=== PATIENT | female | born 1965 | race African-American/Black ===

== ENCOUNTER 2016-03-14 20:13 | Emergency (ER) | payer MEDICARE ==
[~2016-03-14 20:13] MED LIST: AMLO5TAB2 PO; ASPI1TAB69 PO; LOSA100T PO; METO50TA PO; SIMV40TA PO
== END 2016-03-14 20:31 | disposition left against medical advice (07) ==
LOC: PHED 20:13
DX: L29.2 Pruritus vulvae (principal)
CPT/HCPCS: 99281

== ENCOUNTER 2016-03-30 07:17 | Emergency (ER) | payer MEDICARE ==
[~2016-03-30] VITALS: Ht 157.5 cm; Wt 96.3 kg
[2016-03-30 07:25] VITALS: BP 116/75; PULSE 59; RESP 16; TEMP 98.2; O2SAT 98
[2016-03-30] MEDS ORDERED: BACI28.3 TOPICAL (09:04)
[2016-03-30] MEDS ORDERED: IBUP-232 PO (09:05)
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
[2016-03-30] MEDS ORDERED: IBUPROFEN 600 MG TAB PO ONE (09:15)
== END 2016-03-30 09:31 | disposition home or self-care (01) ==
LOC: PHED 07:17
DX: T23.201A Burn of second degree of right hand, unspecified site, initial encounter (principal); X19.XXXA Contact with other heat and hot substances, initial encounter; Y93.9 Activity, unspecified; Y92.9 Unspecified place or not applicable; Y99.9 Unspecified external cause status; Z79.82 Long term (current) use of aspirin
CPT/HCPCS: 99283

== ENCOUNTER 2016-07-20 21:33 | Emergency (ER) | payer MEDICARE ==
[~2016-07-20] VITALS: Ht 157.5 cm; Wt 95.5 kg
[~2016-07-20 21:33] MED LIST changes: +BACI28.3 TOPICAL; +IBUP-232 PO
[2016-07-20 21:41] VITALS: BP 138/85; PULSE 67; RESP 16; TEMP 98.2; O2SAT 99
[2016-07-20] MEDS ORDERED: ASPI81CH CHEW (21:55)
--- NOTE | 2016-07-20 21:55 | PD ---
HPI Chief Complaint: Deckhand Problem/Complaint Time Seen by Provider: 21:50 Travel History International Travel<30 days: No Contact w/Intl Traveler<30days: No Traveled to known affect area: No History of Present Illness HPI This 51-year-old female is complaining of vaginal itching. She has noted some vaginal discharge. In March she took antibiotics for tooth infection. She' s had sporadic vaginal symptoms since. She has been taking Monistat which helps it but then it has come back. She does not have diabetes PFSH Past Medical History Hx Anticoagulant Therapy: Yes (asa 81mg) Blood Disorders: No Cancer: No Cardiovascular Problems: Yes (htn, stent) Chest Pain: No Cerebrovascular Accident: Yes Diabetes: Yes (JUST DIAGNOSED) Diminished Hearing: No Endocrine: No Gastrointestinal Disorders: Yes ( AUDREY HX.THIS ADMIT =VERTICLE SLEEVE) Glaucoma: No Genitourinary: No Hepatitis: No Hiatal Hernia: No Hypertension: Yes Immune Disorder: No Implanted Vascular Access Dvce: Yes ("LUMBAR AREA"- SHUNT PLACEMENT D/T PSEUDO TUMOR CEREBRI) Musculoskeletal: No Psychiatric: No Reproductive: No Respiratory: No Integumentary: No Immunizations Current: Yes Sleep Apnea: Yes (DOESNT USE CPAP) Thyroid Disease: No : 5 Para: 4 Miscarriage: 1 : 0 Tubal Ligation: Yes (2001) Past Surgical History Abdominal Surgery: Yes (01/06/13 GASTRIC SLEEVE) AICD: No Arteriovenous Shunt: Yes Body Medical Devices: LUMBAR PERITONEAL SHUNT Cardiac Surgery: Yes (CARDIAC [id number]) Section: Yes Cholecystectomy: Yes Ear Surgery: No Endocrine Surgery: No Eye Surgery: No Hysterectomy: Yes Joint Replacement: No Neurologic Surgery: Yes (LUMBAR PERITONEAL SHUNT.) Oral Surgery: No Pacemaker: No Thoracic Surgery: No Other Surgery: Yes (SHUNT IN LOW BACK FOR PSEUDOTREMORS) Social History Alcohol Use: No Tobacco Use: No (NEVER) Substance Use: No Allergies-Medications (Allergen,Severity, Reaction): Coded Allergies: Sulfa (Verified Allergy, Severe, red blotches,itchy, 07/20/16) Reported Meds & Prescriptions Reported Meds & Active Scripts Active Ibuprofen 600 Mg Tab 600 Mg PO Q8HR PRN 5 Days Reported Aspirin 81 Mg Chew 81 Mg CHEW DAILY Losartan (Losartan Potassium) 100 Mg Tab 100 Mg PO HS Simvastatin 40 Mg Tab 40 Mg PO HS Metoprolol Tartrate 50 Mg Tab 50 Mg PO BID Amlodipine (Amlodipine Besylate) 5 Mg Tab 5 Mg PO HS Review of Systems General / Constitutional: No: Fever, Chills Eyes: No: Diploplia, Blurred Vision HENT: No: Headaches Cardiovascular: No: Chest Pain or Discomfort, Palpitations Respiratory: No: Cough, Shortness of Breath, Wheezing Gastrointestinal: No: Diarrhea Genitourinary: Positive: Discharge, No: Frequency Musculoskeletal: No: Myalgias Physical Exam Narrative GENERAL: Well-developed female SKIN: Focused skin assessment warm/dry. HEAD: Atraumatic. Normocephalic. EYES: Pupils equal and round. No scleral icterus. No injection or drainage. ENT: No nasal bleeding or discharge. Mucous membranes pink and moist. NECK: Trachea midline. No JVD. GASTROINTESTINAL: Abdomen soft, non-tender, nondistended. Hepatic and splenic margins not palpable. Pelvic: There is some whitish discharge. There is no pain with movement of the cervix MUSCULOSKELETAL: No obvious deformities. No clubbing. No cyanosis. No edema. NEUROLOGICAL: Awake and alert. No obvious cranial nerve deficits. Motor grossly within normal limits. Normal speech. PSYCHIATRIC: Appropriate mood and affect; insight and judgment normal. Data Data Last Documented VS Vital Signs Date Time Temp Pulse Resp B/P Pulse Ox O2 Delivery O2 Flow Rate FiO2 07/20/16 22:00 68 18 07/20/16 21:41 98.2 138/85 99 Orders Gc And Chlamydia Pcr (07/20/16 22:02) Wet Prep Profile (07/20/16 22:02) Labs Laboratory Tests Test 07/20/16 22:00 Clue Cells (Wet Prep) NONE SEEN Vaginal Trichomonas (Wet Prep) NONE SEEN Vaginal Yeast (Wet Prep) NONE SEEN MDM Medical Decision Making Medical Screen Exam Complete: Yes Emergency Medical Condition: Yes Medical Record Reviewed: Yes Differential Diagnosis Differential includes yeast vaginitis, Trichomonas vaginitis, bacterial vaginosis Narrative Course Wet prep is negative. Patient is having symptoms and will be treated with Flagyl as well as Diflucan Diagnosis Primary Impression: Vaginitis Qualified Code: N76.1 - Subacute vaginitis Scripts Metronidazole (Flagyl)500 Mg Nxi311 Mg PO TID 7 Days Ref 0 Prov:Cm Skelton MD 07/20/16 Disposition: 01 DISCHARGE HOME Condition: Stable Cm Skelton MD Jul 20, 2016 21:55
[2016-07-20] MEDS ORDERED: METR-1 PO (22:28)
[2016-07-20] MEDS ORDERED: FLUCONAZOLE 100 MG TAB PO ONE (22:30)
[2016-07-20 22:50] VITALS: BP 128/80; PULSE 68; RESP 16; O2SAT 99
[2016-07-21 04:10] LABS: CHLAMYDIA PCR NOT DETECTED (NOT DETECT); NEISSERIA PCR NOT DETECTED (NOT DETECT)
== END 2016-07-20 22:52 | disposition home or self-care (01) ==
LOC: PHED 21:33
DX: N76.1 Subacute and chronic vaginitis (principal)
CPT/HCPCS: 87210; 87491; 87591; 99284

== ENCOUNTER 2016-10-11 08:42 | Emergency (ER) | payer MEDICARE ==
[~2016-10-11] VITALS: Ht 157.5 cm; Wt 99.0 kg
[~2016-10-11 08:42] MED LIST changes: -ASPI1TAB69 PO; +ASPI81CH CHEW; -BACI28.3 TOPICAL; +METR-1 PO
[2016-10-11 08:50] VITALS: BP 137/77; PULSE 63; RESP 16; TEMP 98; O2SAT 98
[2016-10-11] MEDS ORDERED: IBUP800T23 PO (09:08)
[2016-10-11] MEDS ORDERED: CYCL1TAB29 PO (09:08)
--- NOTE | 2016-10-11 09:09 | PD ---
HPI . Right chest wall pain Chief Complaint: Musculoskeletal Complaint Time Seen by Provider: 09:02 Travel History International Travel<30 days: No Contact w/Intl Traveler<30days: No Traveled to known affect area: No History of Present Illness HPI This patient presents with the acute onset of right chest wall pain. She states that she was reaching for something last night when the pain started. The pain has persisted. It is rated 7/10 and is exacerbated by certain movements. She has not taken anything for it prior to presentation. PFSH Past Medical History Hx Anticoagulant Therapy: Yes (asa 81mg) Blood Disorders: No Cancer: No Cardiovascular Problems: Yes (htn, stent) Chest Pain: No Cerebrovascular Accident: Yes Diabetes: Yes Patient Takes Glucophage: No Diminished Hearing: No Endocrine: No Gastrointestinal Disorders: Yes ( LexxARMANDOJASPER HX.THIS ADMIT =VERTICLE SLEEVE) Glaucoma: No Genitourinary: No Hepatitis: No Hiatal Hernia: No Hypertension: Yes Immune Disorder: No Implanted Vascular Access Dvce: Yes ("LUMBAR AREA"- SHUNT PLACEMENT D/T PSEUDO TUMOR CEREBRI) Medical other: No Musculoskeletal: No Psychiatric: No Reproductive: No Respiratory: No Integumentary: No Immunizations Current: Yes Sleep Apnea: Yes (DOESNT USE CPAP) Thyroid Disease: No ?: Not Menopausal: Yes : 5 Para: 4 Miscarriage: 1 : 0 Tubal Ligation: Yes (2001) Past Surgical History Abdominal Surgery: Yes (01/06/13 GASTRIC SLEEVE) AICD: No Arteriovenous Shunt: Yes Body Medical Devices: LUMBAR PERITONEAL SHUNT Cardiac Surgery: Yes (CARDIAC [id number]) Section: Yes Cholecystectomy: Yes Ear Surgery: No Endocrine Surgery: No Eye Surgery: No Hysterectomy: Yes Joint Replacement: No Neurologic Surgery: Yes (LUMBAR PERITONEAL SHUNT.) Oral Surgery: No Pacemaker: No Thoracic Surgery: No Other Surgery: Yes (SHUNT IN LOW BACK FOR PSEUDOTREMORS) Social History Alcohol Use: No Tobacco Use: No (NEVER) Substance Use: No Allergies-Medications (Allergen,Severity, Reaction): Coded Allergies: Sulfa (Sulfonamide Antibiotics) (Unverified Allergy, Severe, red blotches, itchy, 10/11/16) Reported Meds & Prescriptions Reported Meds & Active Scripts Active Flagyl (Metronidazole) 500 Mg Tab 500 Mg PO TID 7 Days Ibuprofen 600 Mg Tab 600 Mg PO Q8HR PRN 5 Days Reported Aspirin 81 Mg Chew 81 Mg CHEW DAILY Losartan (Losartan Potassium) 100 Mg Tab 100 Mg PO HS Simvastatin 40 Mg Tab 40 Mg PO HS Metoprolol Tartrate 50 Mg Tab 50 Mg PO BID Amlodipine (Amlodipine Besylate) 5 Mg Tab 5 Mg PO HS Review of Systems Except as stated in HPI: all other systems reviewed are Neg Cardiovascular: Positive: Chest Pain or Discomfort Physical Exam Narrative GENERAL: Awake and alert and in no acute distress. SKIN: Warm and dry. HEAD: Atraumatic. Normocephalic. EYES: Pupils equal and round. NECK: Trachea midline. Full range of motion with no pain. CARDIOVASCULAR: Regular rate and rhythm. RESPIRATORY: No accessory muscle use. MUSCULOSKELETAL: No obvious deformities. No edema. Tender over the right pectoralis muscle. Pain exacerbated by contraction of the right pectoralis muscle. NEUROLOGICAL: Awake and alert. No obvious cranial nerve deficits. Motor grossly within normal limits. Normal speech. PSYCHIATRIC: Appropriate mood and affect; insight and judgment normal. Data Data Last Documented VS Vital Signs Date Time Temp Pulse Resp B/P (MAP) Pulse Ox O2 Delivery O2 Flow Rate FiO2 10/11/16 08:50 98.0 63 16 137/77 (97) 98 MDM Medical Decision Making Medical Screen Exam Complete: Yes Emergency Medical Condition: Yes Differential Diagnosis Differential diagnosis includes but is not limited to acute muscle strain, spasm , contusion Narrative Course This patient presents with the acute onset right chest wall pain that started after reaching for something last night. Pain is exacerbated by certain movements. Exam shows tenderness of the right pectoralis muscle. Diagnosis Primary Impression: Muscle strain of anterior chest wall Med/Other Pt SpecificInfo: Prescription(s) given Scripts Cyclobenzaprine (Flexeril) 10 Mg Tab 10 MG PO TID for Muscle Spasm, #30 TAB 0 Refills Prov: Iman Pedraza MD 10/11/16 Ibuprofen (Ibuprofen) 800 Mg Tab 800 MG PO Q8H Y for Pain/Inflammation, #60 TAB 0 Refills Prov: Iman Pedraza MD 10/11/16 Disposition: 01 DISCHARGE HOME Condition: Stable Iman Pedraza MD Oct 11, 2016 09:09
== END 2016-10-11 09:32 | disposition home or self-care (01) ==
LOC: PHED 08:42
DX: S29.011A Strain of muscle and tendon of front wall of thorax, initial encounter (principal); I10 Essential (primary) hypertension; X50.1XXA Overexertion from prolonged static or awkward postures, initial encounter; Z79.82 Long term (current) use of aspirin
CPT/HCPCS: 99283

== ENCOUNTER 2017-03-22 07:49 | Emergency (ER) | payer MEDICARE ==
[~2017-03-22] VITALS: Ht 177.8 cm; Wt 100.0 kg
[~2017-03-22 07:49] MED LIST changes: -ASPI81CH CHEW; +CYCL10TA PO; -IBUP-232 PO; +IBUP1TAB7 PO; -METR-1 PO
[2017-03-22 07:51] VITALS: BP 134/81; PULSE 67; RESP 14; TEMP 97.6; O2SAT 97
--- NOTE | 2017-03-22 08:54 | RADRPT ---
EXAM DATE/TIME: 03/22/2017 08:40 [facility] COMPARISON: No previous studies available for comparison. INDICATIONS : Cough and flu like symptoms. MEDICAL HISTORY : Stroke. Hypertension. Pseudo tremors. Diabetes. SURGICAL HISTORY : Cardiac stent. ENCOUNTER: Initial ACUITY: 3 days PAIN SCORE: 5/10 LOCATION: Bilateral chest FINDINGS: A single view of the chest demonstrates the lungs to be symmetrically aerated without evidence of mas s, infiltrate or effusion. The cardiomediastinal contours are unremarkable. Osseous structures are intact. CONCLUSION: 1. No acute cardiopulmonary disease. Nirav Retana MD on March 22, 2017 at 8:53 Board Certified Radiologist. This report was verified electronically.
--- NOTE | 2017-03-22 09:22 | PD ---
HPI Chief Complaint: ENT Complaint Time Seen by Provider: 08:10 Travel History International Travel<30 days: No Contact w/Intl Traveler<30days: No Traveled to known affect area: No History of Present Illness HPI 51-year-old female presents to the emergency Department with complaint of throat pain 3 days. Denies lump in throat, difficulty swallowing, unusual drooling. Reports painful swallowing. Is also complaining that she's had a cough since mid February and took a Z-Rboin and it went away and in the past week it's been back and getting worse again. Denies chest pain, shortness of breath. Reports pain in her bilateral upper back/rib cage area with deep breath and movement. Denies wheezing. Denies nasal congestion or ear pain. Denies fever, vomiting. Rates throat pain 08/14. Describes it as a burning sensation. Worse with deep breaths and movements. No known relieving factors. Son has been sick with similar symptoms. Has tried taking sertraline for symptom management. Primary care provider is Dr. Frias. History of hypertension, cardiac stent placement, pseudotumor cerebri. Allergies to sulfa. Has no other medical complaints. No other modifying factors or associated signs and symptoms. PFSH Past Medical History Hx Anticoagulant Therapy: Yes (asa 81mg) Blood Disorders: No Cancer: No Cardiovascular Problems: Yes (htn, stent) Chest Pain: No Cerebrovascular Accident: Yes Diabetes: Yes Diminished Hearing: No Endocrine: No Gastrointestinal Disorders: Yes ( AUDREY HX.THIS ADMIT =VERTICLE SLEEVE) Glaucoma: No Genitourinary: No Hepatitis: No Hiatal Hernia: No Hypertension: Yes Immune Disorder: No Implanted Vascular Access Dvce: Yes ("LUMBAR AREA"- SHUNT PLACEMENT D/T PSEUDO TUMOR CEREBRI) Musculoskeletal: No Psychiatric: No Reproductive: No Respiratory: No Integumentary: No Immunizations Current: Yes Sleep Apnea: Yes (DOESNT USE CPAP) Thyroid Disease: No Menopausal: Yes : 5 Para: 4 Miscarriage: 1 : 0 Tubal Ligation: Yes (2001) Past Surgical History Abdominal Surgery: Yes (01/06/13 GASTRIC SLEEVE) AICD: No Arteriovenous Shunt: Yes Body Medical Devices: LUMBAR PERITONEAL SHUNT Cardiac Surgery: Yes (CARDIAC [id number]) Section: Yes Cholecystectomy: Yes Ear Surgery: No Endocrine Surgery: No Eye Surgery: No Hysterectomy: Yes Joint Replacement: No Neurologic Surgery: Yes (LUMBAR PERITONEAL SHUNT.) Oral Surgery: No Pacemaker: No Thoracic Surgery: No Other Surgery: Yes (SHUNT IN LOW BACK FOR PSEUDOTREMORS) Social History Alcohol Use: No Tobacco Use: No (NEVER) Substance Use: No Allergies-Medications (Allergen,Severity, Reaction): Coded Allergies: Sulfa (Sulfonamide Antibiotics) (Unverified Allergy, Severe, red blotches, itchy, 03/22/17) Reported Meds & Prescriptions Reported Meds & Active Scripts Active Flexeril (Cyclobenzaprine HCl) 10 Mg Tab 10 Mg PO TID Ibuprofen 800 Mg Tab 800 Mg PO Q8H PRN Reported Losartan (Losartan Potassium) 100 Mg Tab 100 Mg PO HS Simvastatin 40 Mg Tab 40 Mg PO HS Metoprolol Tartrate 50 Mg Tab 50 Mg PO BID Amlodipine (Amlodipine Besylate) 5 Mg Tab 5 Mg PO HS Review of Systems Except as stated in HPI: all other systems reviewed are Neg Physical Exam Narrative GENERAL: Well-nourished, well-developed black female patient, in no acute distress; afebrile, nontoxic-appearing SKIN: Warm and dry. No rash. HEAD: Atraumatic. Normocephalic. EYES: Pupils equal and round. No scleral icterus. No injection or drainage. ENT: Mucosa pink and moist. No erythema or exudates. No uvular edema. No uvular , palatal, or tonsillar deviation. Airway patent. EARS: Bilateral pinnae and external canals appear within normal limits. Bilateral tympanic membranes without erythema, dullness or perforation. NECK: Trachea midline. No lymphadenopathy. CARDIOVASCULAR: Regular rate and rhythm. No murmur appreciated. RESPIRATORY: No accessory muscle use. Clear to auscultation. Breath sounds equal bilaterally. No retractions or tachypnea. GASTROINTESTINAL: Abdomen soft, non-tender, nondistended. Hepatic and splenic margins not palpable. Bowel sounds are active 4 quadrants. MUSCULOSKELETAL: No obvious deformities. No clubbing. No cyanosis. No edema. NEUROLOGICAL: Awake and alert. Oriented 3. No obvious cranial nerve deficits. Motor grossly within normal limits. Normal speech. Moves all extremities. 5/5 strength to all extremities. PSYCHIATRIC: Appropriate mood and affect; insight and judgment normal. Data Data Last Documented VS Vital Signs Date Time Temp Pulse Resp B/P (MAP) Pulse Ox O2 Delivery O2 Flow Rate FiO2 03/22/17 07:51 97.6 67 14 134/81 (98) 97 Orders Orders Chest, Single Ap (03/22/17 08:28) Influenzae A/B Antigen (03/22/17 08:31) Group A Rapid Strep Screen (03/22/17 08:31) Strep Culture (Group A) (03/22/17 08:50) MDM Medical Decision Making Medical Screen Exam Complete: Yes Emergency Medical Condition: Yes Medical Record Reviewed: Yes Differential Diagnosis Strep pharyngitis, viral pharyngitis, URI, bronchitis, influenza, pneumonia Narrative Course 51-year-old female with throat pain 3 days. Also reports cough since mid February. Was treated with a Z-Robin which helped the cough subsided and then has returned within the past week. Denies chest pain or shortness of breath. Lungs are clear and equal throughout. Patient is in no acute distress and without retractions or tachypnea. Patient is afebrile and nontoxic-appearing. She denies fever, vomiting. Rapid strep, influenza, chest x-ray ordered. I offered the patient pain medication and she declined. 0930: Chest x-ray with no acute findings. 1017: Influenza and rapid strep negative. Discussed viral illness and symptom management. Instructed patient to follow up with primary care provider. Patient verbalizes understanding and agreement with treatment plan. Patient is medically cleared and stable for discharge. Discussed reasons to return to the emergency department. Patient agrees with treatment plan. The patients vital signs are stable and the patient is stable for outpatient follow-up and treatment. Patient discharged home, stable and in no acute distress. Diagnosis Primary Impression: Viral illness Referrals: Primary Care Physician Patient Instructions: Cold Symptoms (ED), General Instructions, Safe Use of Cough and Cold Medicines (ED), Viral Syndrome (ED) Additional Instructions: Throw away and change your toothbrush 24 hours after starting antibiotics Get plenty of sleep/rest Rest your voice Drink plenty of fluids to prevent dehydration Use warm saltwater gargles to soothe throat pain Use an air humidifier/turn off ceiling fans Use throat lozenges as needed for sore throat Use ibuprofen or acetaminophen as needed to relieve pain and fever Follow-up with your primary care provider within 2-4 days Return immediately to the emergency department with worsening of symptoms Med/Other Pt SpecificInfo: No Change to Meds, No Meds Exist/No RX given Disposition: 01 DISCHARGE HOME Condition: Stable Shirley Winter Mar 22, 2017 09:22
== END 2017-03-22 10:49 | disposition home or self-care (01) ==
LOC: NEPD 07:49
DX: B34.9 Viral infection, unspecified (principal); R05 Cough; I10 Essential (primary) hypertension; E11.9 Type 2 diabetes mellitus without complications; Z79.01 Long term (current) use of anticoagulants
CPT/HCPCS: 71045; 87081; 87804; 87880; 99284

== ENCOUNTER 2017-08-19 16:39 | Observation (INO) ==
[2017-08-19] MEDS ORDERED: Aspirin 325 MG Tablet PO ONE (17:05)
[2017-08-19 17:31] LABS: Baso # (Auto) 0.1 th/mm3 (0.0-0.2); Baso % (Auto) 0.5 % (0.0-2.0); Eos # (Auto) 0.1 th/mm3 (0.0-0.4); Eos % (Auto) 1.3 % (0.0-4.0); Hemoglobin 13.9 gm/dL (11.6-15.3); Lymph # (Auto) 2.2 th/mm3 (1.0-4.8); Mean Corpuscular HGB Conc 33.1 % (32.0-36.0); Mean Corpuscular Hemoglobin 28.4 pg (27.0-34.0); Mean Corpuscular Volume 85.7 fL (80.0-100.0); Mean Platelet Volume 7.6 fL (7.0-11.0); Mono # (Auto) 0.8 th/mm3 (0.0-0.9); Mono % (Auto) 6.6 % (0.0-8.0); Neut # (Auto) 8.5 th/mm3 (1.8-7.7); Neut % (Auto) 72.6 % (16.0-70.0); Platelet Count 445 th/mm3 (150-450); Red Cell Distribution Width 14.6 % (11.6-17.2); White Blood Count 11.8 th/mm3 (4.0-11.0)
--- NOTE | 2017-08-19 17:32 | XR ---
EXAM DATE: 08/19/2017 5:23 PM EDT AGE/SEX: 52 years / Female INDICATIONS: Chest pain CLINICAL DATA: This is the patient's initial encounter. Patient reports that signs and symptoms have been present for 1 day and indicates a pain score of 4/10. MEDICAL/SURGICAL HISTORY: . Stroke. Hypertension. Pseudo tremors. Diabetes. . . Cardiac sten t COMPARISON: [facility] [place], CHEST SINGLE AP, 03/22/2017. . FINDINGS: A single AP view of the chest demonstrates the lungs to be symmetrically aerated without evidence of mass, infiltrate or effusion. The cardiomediastinal contours are unremarkable. Osseous structures a re intact. CONCLUSION: No acute cardiopulmonary process. Electronically signed by: Srinivasa Ledbetter MD 08/19/2017 5:30 PM EDT
[2017-08-19 17:41] LABS: Activated Partial Thrombo Time 26.6 sec (24.3-30.1); Prothrombin Time 10.4 sec (9.8-11.6)
--- NOTE | 2017-08-19 17:57 | ED ---
HPI General Chief Complaint: Chest Pain Stated Complaint: Possible Cardiac Time Seen by Provider: 08/19/17 16:59 Source: patient and family Mode of arrival: ambulatory Limitations: no limitations History of Present Illness HPI narrative: 52-year-old female that presents to the ED for evaluation of left -sided chest pain. Per patient she has had this pain for the past 2-3 hours. Per patient he feels similar to when she had stents. Per patient she was walking and the pain started. Per patient the pain has subsided. Initially was 10 out of 10 now is more of a 6 out of 10. Per patient he does comes pressure her chest and gives her some nausea. She states that it seems to radiate to her right side of her body. Denies any urinary or bowel movement issues. Has not taken anything for this. She does have a history of high blood pressure and history of ACS herself. Denies smoking. Denies any abdominal pain. Per patient she follows with curtain cleaner. She states that she recently had a biopsy of her breast mass that was apparently stage 0. She does not know if it was cancer or not. She has not had any chemoradiation. No numbness, drooling, weakness. No other medical issues reported at this time. Complete Quality Measures for STEMI Alert Patients Related Data Home Medications Medication Instructions Recorded Confirmed amlodipine 5 mg PO DAILY 08/19/17 08/19/17 aspirin 81 mg PO DAILY 08/19/17 08/19/17 losartan 100 mg PO DAILY 08/19/17 08/19/17 metoprolol tartrate 100 mg PO BID 08/19/17 08/19/17 simvastatin 20 mg PO QPM 08/19/17 08/19/17 Allergies Allergy/AdvReac Type Severity Reaction Status Date / Time Sulfa (Sulfonamide Allergy Severe red Verified 08/20/17 02:46 Antibiotics) blotches,itchy Review of Systems ROS Unobtainable All other systems reviewed negative except as stated in HPI [facility] Medical History Medical History History of heart attack (Acute) Hypertension (Acute) Social History Social History Substance History: No History of Abuse Second Hand Smoke Exposure: No Smoking Status: Never smoker How Often Do You Have a Drink Containing Alcohol: Never Recent Travel in [facility] within the Last 8 Weeks: No Recent Out of Country Travel within the Last 8 Weeks: No Immunization History Tetanus Immunization: Unsure Exam Narrative Exam Narrative: GENERAL: Well-appearing SKIN: Focused skin assessment warm/dry. HEAD: Atraumatic. Normocephalic. EYES: Pupils equal and round 4 mms reactive to light and accommodation. No scleral icterus. No injection or drainage. ENT: No nasal bleeding or discharge. Mucous membranes pink and moist. Tongue is midline. No uvula deviation. NECK: Trachea midline. No JVD. CARDIOVASCULAR: Regular rate and rhythm. No murmur appreciated. RESPIRATORY: No accessory muscle use. Clear to auscultation. Breath sounds equal bilaterally. GASTROINTESTINAL: Abdomen soft, non-tender, nondistended. Hepatic and splenic margins not palpable. MUSCULOSKELETAL: No obvious deformities. No clubbing. No cyanosis. No edema. Full range of motion of the upper and lower extremities 2+ pulses bilaterally. NEUROLOGICAL: Awake and alert. No obvious cranial nerve deficits. Motor grossly within normal limits. Normal speech. PSYCHIATRIC: Appropriate mood and affect; insight and judgment normal. Course Initial Documented Vital Signs Pulse Rate 104 H 08/19/17 17:01 Respiratory Rate 22 08/19/17 17:01 Blood Pressure 199/92 H 08/19/17 17:01 Pulse Oximetry 98 08/19/17 17:01 Last Documented Vital Signs Temperature 98.1 F 08/20/17 11:30 Pulse Rate 83 08/20/17 11:30 Respiratory Rate 16 08/20/17 11:30 Blood Pressure 126/72 08/20/17 11:30 Pulse Oximetry 98 08/20/17 11:30 Sign Out Sign Out Data: Patient Sign Out occurred on 08/19/17 at 21:34. Patient's care was discussed, and care was transferred from Dara Moya DO to Tello Goins. Sign Out Comment: Patient is pending CTA chest to rule out PE. She will need observation in chest pain unit if negative/ admission if positive. Last updated by Dara Moya DO at 08/19/17 19:14 Medical Decision Making FINN Attestation FINN supervised visit: Yes Attestation: I was present with the physician's sourcing assistant during the management of this patient. I discussed the case with the advanced practitioner and agree with the findings and plan as documented in their note except as noted below. 52yF presenting with chest pain. The patient has a significant cardiac history and is scheduled for a stress test in 2 days; she presented today complaining of left-sided chest pain which is "pressure-like", constant, non-radiating, not made better or worse by anything, gradual onset, and moderate to severe intensity. Patient has previous cardiac stents. Family history non-contributory. Appears uncomfortable NCAT, PERRL RRR CTAB Abd soft, non-tender No lower extremity edema GCS 15, no focal neuro deficits Plan: 52yF presenting with chest pain EKG and monitor Labs, including trop CXR ASA CTA chest to r/o PE (patient has history of breast CA, ? stage 0) Reassess Differential diagnosis includes, but is not limited to: ACS, PE, pneumonia, pleural effusion MDM Narrative Medical decision making narrative: 52-year-old female that presents to the ED for evaluation of chest pain. Patient was properly examined and was found to have signs and symptoms consistent appears to be possible ACS. Labs and imaging order. Labs and imaging showed no sign of acute disease. This time recommendations for admission to chest pain center for further workup of the ACS. She was found to be somewhat hypertensive and was started on labetalol IV with good results. At this time patient was admitted to chest pain center for further evaluation of her chest pain. Family and patient agree with this. Case discussed with my attending who evaluated the patient herself and agrees with plan. Differential Diagnosis Differential Diagnosis: ACS versus typical chest pain versus chest pain versus PE Medical Records Medical records reviewed: Yes I reviewed the patient's medical records. Lab Data Lab results reviewed: Yes I reviewed the patient's lab results. Lab results narrative: Troponin and CK-MB negative. Result diagrams: 08/19/17 17:10 08/19/17 17:10 Lab Results 08/19/17 08/19/17 08/19/17 Range/Units 17:10 17:10 17:10 WBC 11.8 H (4.0-11.0) th/mm3 RBC 4.90 (4.00-5.30) mil/mm3 Hgb 13.9 (11.6-15.3) gm/dL Hct 42.0 (35.0-46.0) % MCV 85.7 (80.0-100.0) fL MCH 28.4 (27.0-34.0) pg MCHC 33.1 (32.0-36.0) % RDW 14.6 (11.6-17.2) % Plt Count 445 (150-450) th/mm3 MPV 7.6 (7.0-11.0) fL Neut % (Auto) 72.6 H (16.0-70.0) % Lymph % (Auto) 19.0 (9.0-44.0) % Geary % (Auto) 6.6 (0.0-8.0) % Eos % (Auto) 1.3 (0.0-4.0) % Baso % (Auto) 0.5 (0.0-2.0) % Neut # (Auto) 8.5 H (1.8-7.7) th/mm3 Lymph # (Auto) 2.2 (1.0-4.8) th/mm3 [place]ary # (Auto) 0.8 (0.0-0.9) th/mm3 Eos # (Auto) 0.1 (0.0-0.4) th/mm3 Baso # (Auto) 0.1 (0.0-0.2) th/mm3 WBC Differential . Differential Comment Auto diff final PT 10.4 (9.8-11.6) sec INR 1.0 Ratio APTT 26.6 (24.3-30.1) sec Sodium 141 (136-145) meq/L Potassium 3.5 (3.5-5.1) meq/L Chloride 106 (98-107) meq/L Carbon Dioxide 25.5 (21.0-32.0) meq/L Anion Gap 10 (5-15) meq/L BUN 14 (7-18) mg/dL Creatinine 0.99 (0.50-1.00) mg/dL Estimated GFR 71 L (>89) mL/min Random Glucose 91 (74-106) mg/dL Calcium 8.9 (8.5-10.1) mg/dL Magnesium 2.2 (1.5-2.5) mg/dL Total Bilirubin 0.5 (0.2-1.0) mg/dL AST 24 (15-37) U/L ALT 26 (10-53) U/L Alkaline Phosphatase 91 (45-117) U/L Total Creatine Kinase 159 (26-192) U/L CK-MB (CK-2) 1.4 (0.5-3.6) ng/mL Troponin I Less than 0.02 L (0.02-0.05) ng/mL Total Protein 8.9 H (6.4-8.2) g/dL Albumin 4.2 (3.4-5.0) g/dL Lipase 164 (73-393) U/L 08/19/17 08/19/17 Range/Units 22:00 23:05 WBC (4.0-11.0) th/mm3 RBC (4.00-5.30) mil/mm3 Hgb (11.6-15.3) gm/dL Hct (35.0-46.0) % MCV (80.0-100.0) fL MCH (27.0-34.0) pg MCHC (32.0-36.0) % RDW (11.6-17.2) % Plt Count (150-450) th/mm3 MPV (7.0-11.0) fL Neut % (Auto) (16.0-70.0) % Lymph % (Auto) (9.0-44.0) % Geary % (Auto) (0.0-8.0) % Eos % (Auto) (0.0-4.0) % Baso % (Auto) (0.0-2.0) % Neut # (Auto) (1.8-7.7) th/mm3 Lymph # (Auto) (1.0-4.8) th/mm3 Geary # (Auto) (0.0-0.9) th/mm3 Eos # (Auto) (0.0-0.4) th/mm3 Baso # (Auto) (0.0-0.2) th/mm3 WBC Differential Differential Comment PT (9.8-11.6) sec INR Ratio APTT (24.3-30.1) sec Sodium (136-145) meq/L Potassium (3.5-5.1) meq/L Chloride (98-107) meq/L Carbon Dioxide (21.0-32.0) meq/L Anion Gap (5-15) meq/L BUN (7-18) mg/dL Creatinine (0.50-1.00) mg/dL Estimated GFR (>89) mL/min Random Glucose (74-106) mg/dL Calcium (8.5-10.1) mg/dL Magnesium (1.5-2.5) mg/dL Total Bilirubin (0.2-1.0) mg/dL AST (15-37) U/L ALT (10-53) U/L Alkaline Phosphatase (45-117) U/L Total Creatine Kinase 123 111 (26-192) U/L CK-MB (CK-2) (0.5-3.6) ng/mL Troponin I Less than 0.02 L Less than 0.02 L (0.02-0.05) ng/mL Total Protein (6.4-8.2) g/dL Albumin (3.4-5.0) g/dL Lipase (73-393) U/L Imaging Data Attestation: I personally reviewed and interpreted this imaging study as follows : Radiologist's impression: Chest X-Ray 08/19/17 17:05 CONCLUSION: No acute cardiopulmonary process. Chest CTA 08/19/17 17:07 CONCLUSION: No pulmonary embolus. Myocardial Perfusion Scan Nuc Med 08/20/17 07:39 CONCLUSION: Negative examination. ECG Data Interpretation: Rate: 105 BPM Rhythm: Sinus [place]: Left Intervals: Normal intervals, no blocks, QTc 425 ms Q waves: I, aVL T waves: Upright, no inversions ST segments: No elevations or depressions Impression: Non-specific EKG, no changes as compared to EKG from 11/20/2012. Discharge Plan Discharge Disposition Patient Disposition: 30 Still Patient Discharge Condition Condition: Stable Discharge Order Discharge Orders: Discharge Order (Routine); Ordered 08/20/17 Ordered By: Alfonso Zabala Discharge Details Diagnosis: Chest pain in adult Physicians Team ED Provider: Tello Goins ED Midlevel Provider: Robby Ortega Primary Care Provider: Zoe Kurtz Attending Provider: Bharat Mccormick Status ED Status: Left Department Discharge Information Discharge Date/Time: 08/19/17 23:00
[2017-08-19] MEDS ORDERED: Morphine Inj 4 MG/ML Vial IV.PUSH ONE (18:00)
[2017-08-19 18:03] LABS: Alkaline Phosphatase 91 U/L (45-117); Creatine Kinase 159 U/L (26-192); Total Protein 8.9 g/dL (6.4-8.2)
[2017-08-19 18:10] LABS: Alanine Aminotransferase 26 U/L (10-53); Albumin 4.2 g/dL (3.4-5.0); Anion Gap 10 meq/L (5-15); Aspartate Aminotransferase 24 U/L (15-37); Blood Urea Nitrogen 14 mg/dL (7-18); Calcium 8.9 mg/dL (8.5-10.1); Carbon Dioxide 25.5 meq/L (21.0-32.0); Chloride 106 meq/L (98-107); Glomerular Filtration Rate 71 mL/min (>89); Glucose,Random 91 mg/dL (74-106); Lipase 164 U/L (73-393); Magnesium 2.2 mg/dL (1.5-2.5); Potassium 3.5 meq/L (3.5-5.1); Sodium 141 meq/L (136-145)
[2017-08-19 18:16] LABS: Creatine Kinase MB 1.4 ng/mL (0.5-3.6)
--- NOTE | 2017-08-19 19:23 | CT ---
EXAM DATE: 08/19/2017 7:18 PM EDT AGE/SEX: 52 years / Female INDICATIONS: Substernal chest pain today. CLINICAL DATA: This is the patient's initial encounter. Patient reports that signs and symptoms have been present for 1 day and indicates a pain score of 6/10. MEDICAL/SURGICAL HISTORY: Hypertension. myocardial infarction None. RADIATION DOSE: 10.66 CTDI (mGy) COMPARISON: No prior exams available for comparison. TECHNIQUE: Volumetric scanning was performed using a multi-row detector CT scanner during bolus infu donnell of 78 ml Omnipaque 350 (iohexol) nonionic water-soluble contrast as a single exam dose. The joshua a was post processed with a variety of visualization algorithms including full volume maximum intensi ty projection and sliding thin slab reformation. Using automated exposure control and adjustment of t he mA and/or kV according to patient size, radiation dose was kept as low as reasonably achievable to obtain optimal diagnostic quality images. DICOM format image data is available electronically for r eview and comparison. FINDINGS: Pulmonary Arteries: No filling defects are seen in the pulmonary arteries out to the subsegmental ve ssels. The left and right pulmonary arteries are normal in diameter. Lung: No infiltrates seen. Effusion: None. Mediastinum: No evidence of mediastinal or hilar adenopathy. 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 There appears to be a vidya nt in the LAD. Other: The axilla is unremarkable. Bowel shayla are seen around the stomach. The patient is status post cholecystectomy. CONCLUSION: No pulmonary embolus. Electronically signed by: Srinivasa Ledbetter MD 08/19/2017 7:22 PM EDT
[2017-08-19] MEDS ORDERED: Labetalol HCl Inj 100 MG/20 ML Vial IV.PUSH ONE (20:03)
[2017-08-19] MEDS ORDERED: Acetaminophen 500 MG Tablet PO PRN (20:04)
[2017-08-19 22:47] LABS: Creatine Kinase 123 U/L (26-192)
[2017-08-19 23:42] LABS: Creatine Kinase 111 U/L (26-192)
[2017-08-20 07:54] VITALS: RESP 16
[2017-08-20] MEDS ORDERED: amLODIPine 5 MG Tablet PO SCH (09:00)
[2017-08-20] MEDS ORDERED: Metoprolol Tartrate 100 MG Tablet PO SCH (09:00)
--- NOTE | 2017-08-20 09:56 | P.HPCA ---
History of Present Illness Primary Care Physician: Zoe Kurtz MD Chief Complaint: Chest pain History of Present Illness: This is a 52-year-old female history of CAD with a stent to the LAD in 2011 that presents to ED with complaint of a central chest discomfort that felt as if she was hit in the chest. It began while she was shopping. Initial episode lasted 5-7 seconds but then the discomfort turned to a soreness for 4-5 hours. She was nauseous with it. No shortness of breath or diaphoresis. States it does feel a little similar to the symptoms she had when she needed a stent in 2011. Voices compliance with her medications. Follows with a circular clerk but states she has had no recent stress testing. Currently denies chest discomfort. Found nothing to worsen or improve when she had it. Non-smoker. Family history of CAD. Patient has had a cardiac catheterization 2011 with a stent to the LAD. - Diagnosis (1) Chest pain (2) CAD (coronary artery disease) (3) Hx of heart artery stent (4) Hypertension (5) Hyperlipidemia Inpatient Certification: I certify that the inpatient services were ordered in accordance with Medicare regulations governing the order. This includes certification that hospital inpatient services are reasonable and necessary and in the case of services not specified as inpatient-only under 42 CFR 419.22(n), that they are appropriately provided as inpatient services in accordance to with the 2-midnight benchmark under 43 CFR 412.3(e) Review of Systems General: Patient denies fevers, chills, and recent travel. HEENT: Patient denies headache, sore throat, difficulty swallowing. Cardiovascular: Has the chest discomfort as mentioned above. Denies sensation of heart beating rapidly or irregularly. No syncope. Respiratory: Denies shortness of breath or inspirational chest discomfort. Denies coughing wheezing or hemoptysis. GI: She was nauseous. Patient denies vomiting, diarrhea, abdominal pain, bloody stools. Musculoskeletal: Patient denies joint pain or edema. Denies calf pain or edema. Neurovascular: Patient denies numbness, tingling, weakness in extremities. Denies headache. Endocrine: Denies polyuria and polydipsia. Hematologic: Denies easy bruising. Skin: Denies rash or itching. PMFSH - History History Provided By: Patient - Medical History Medical History: Medical History (Last Reviewed 08/19/17 @ 17:54 by ELIZABETH Molina) History of heart attack Hypertension - Tobacco History Second Hand Smoke Exposure: No Tobacco Use In Past 30 Days: No Smoking Status: Never smoker - Alcohol History How Often Do You Have a Drink Containing Alcohol: Never - Substance Use History Substance History: No History of Abuse - Travel History Recent Travel in the [place] Within the Last 8 Weeks: No Recent Travel Out of the Country Within the Last 8 Weeks: No - Immunization History Tetanus Immunization: Unsure Medications and Allergies Active Medications: Active Medications Acetaminophen (Tylenol) 500 mg PO Q4H PRN PRN Reason: HEADACHE Hydrocodone Bitart/Acetaminophen ([place] 7.5/325) 1 tab PO Q4H PRN PRN Reason: PAIN SCALE 1 TO 7 Amlodipine Besylate (Norvasc) 5 mg PO DAILY ORION Losartan Potassium (Cozaar) 100 mg PO DAILY ORION Metoprolol Tartrate (Lopressor) 100 mg PO BID ORION Pravastatin Sodium (Pravachol) 40 mg PO DAILY@1800 ORION Sodium Chloride (Ns Flush) 2 ml IV.FLUSH UNSCH PRN PRN Reason: FLUSH AFTER USING IV ACCESS Allergies Allergy/AdvReac Type Severity Reaction Status Date / Time Sulfa (Sulfonamide Allergy Severe red Verified 08/20/17 02:46 Antibiotics) blotches,itchy Home Medications Medication Instructions Recorded Confirmed Type amlodipine 5 mg PO DAILY 08/19/17 08/19/17 History aspirin 81 mg PO DAILY 08/19/17 08/19/17 History losartan 100 mg PO DAILY 08/19/17 08/19/17 History metoprolol tartrate 100 mg PO BID 08/19/17 08/19/17 History simvastatin 20 mg PO QPM 08/19/17 08/19/17 History Exam Vital signs: Vital Signs 08/19/17 17:01 08/19/17 17:05 08/19/17 17:10 Temperature Pulse Rate 104 H 100 H Respiratory Rate 22 20 Blood Pressure 199/92 H 199/92 H Pulse Oximetry 98 98 98 08/19/17 17:23 08/19/17 17:25 08/19/17 18:00 Temperature Pulse Rate 92 H 103 H Respiratory Rate 20 20 22 Blood Pressure 158/70 H 183/113 H Pulse Oximetry 98 100 08/19/17 18:12 08/19/17 18:52 07/15/18 19:19 Temperature Pulse Rate 123 H 101 H Respiratory Rate 20 26 H 22 Blood Pressure 187/109 H 213/105 H Pulse Oximetry 100 96 08/19/17 20:18 08/19/17 20:45 08/19/17 20:46 Temperature Pulse Rate 98 H 94 H 91 H Respiratory Rate 18 20 18 Blood Pressure 217/103 H 169/87 H 165/87 H Pulse Oximetry 97 98 97 08/19/17 22:16 08/20/17 04:00 08/20/17 06:38 Temperature 99.0 F 98.4 F Pulse Rate 86 74 75 Respiratory Rate 16 18 Blood Pressure 128/76 126/75 Pulse Oximetry 94 L 97 08/20/17 07:52 Temperature 97.9 F Pulse Rate 75 Respiratory Rate 16 Blood Pressure 114/70 Pulse Oximetry 95 Intake & Output 08/19/17 08/20/17 08/20/17 18:59 06:59 18:59 Weight 85 kg Narrative: GENERAL: This is a well-nourished, well-developed patient, in no apparent distress. Patient speaks in clear complete sentences. Patient is pleasant. HEENT: Head is atraumatic and normocephalic. Neck is supple without lymphadenopathy and trachea is midline. No JVD or carotid bruits. CARDIOVASCULAR: Regular rate and rhythm without murmurs, gallops, or rubs. RESPIRATORY: Clear to auscultation. Breath sounds equal bilaterally. No wheezes , rales, or rhonchi. Chest wall is nontender. No use of accessory muscles. GASTROINTESTINAL: Abdomen is nontender, nondistended. Abdomen soft. No obvious pulsatile mass or bruit. No CVA tenderness. Strong femoral pulses bilaterally. Normal bowel sounds in all quadrants. MUSCULOSKELETAL: Patient is moving upper and lower extremities freely. No calf tenderness or edema, no Homans sign. Strong pulses in upper and lower extremities. NEUROLOGICAL: Patient is alert and oriented. Cranial nerves 2-12 are grossly intact. No focal deficits and speech is clear. SKIN: No rash and turgor is normal. Results 08/19/17 17:10 08/19/17 17:10 Cardiac Enzymes 08/19/17 08/19/17 08/19/17 Range/Units 17:10 22:00 23:05 AST 24 (15-37) U/L CK-MB (CK-2) 1.4 (0.5-3.6) ng/mL Troponin I Less than 0.02 L Less than 0.02 L Less than 0.02 L (0.02-0.05) ng/mL Coagulation 08/19/17 Range/Units 17:10 PT 10.4 (9.8-11.6) sec APTT 26.6 (24.3-30.1) sec CBC 08/19/17 Range/Units 17:10 WBC 11.8 H (4.0-11.0) th/mm3 RBC 4.90 (4.00-5.30) mil/mm3 Hgb 13.9 (11.6-15.3) gm/dL Hct 42.0 (35.0-46.0) % Plt Count 445 (150-450) th/mm3 Neut # (Auto) 8.5 H (1.8-7.7) th/mm3 Lymph # (Auto) 2.2 (1.0-4.8) th/mm3 [place] # (Auto) 0.8 (0.0-0.9) th/mm3 Eos # (Auto) 0.1 (0.0-0.4) th/mm3 Baso # (Auto) 0.1 (0.0-0.2) th/mm3 Comprehensive Metabolic Panel 08/19/17 Range/Units 17:10 Sodium 141 (136-145) meq/L Potassium 3.5 (3.5-5.1) meq/L Chloride 106 (98-107) meq/L Carbon Dioxide 25.5 (21.0-32.0) meq/L BUN 14 (7-18) mg/dL Creatinine 0.99 (0.50-1.00) mg/dL Calcium 8.9 (8.5-10.1) mg/dL AST 24 (15-37) U/L ALT 26 (10-53) U/L Alkaline Phosphatase 91 (45-117) U/L Total Protein 8.9 H (6.4-8.2) g/dL Albumin 4.2 (3.4-5.0) g/dL Intake and Output 08/19/17 08/20/17 08/20/17 22:59 06:59 14:59 Other: Weight 85 kg EKG interpretations - EKG EKG shows: sinus rhythm (EKGs are sinus rhythm without significant ST segment depressions or elevations.) Caprini VTE Risk Assessment Caprini VTE Risk Assessment: No/Low Risk (score <= 1) Caprini Risk Assessment Model: Point Value = 1 Point Value = 2 Point Value = 3 Point Value = 5 Age 41-60 Minor surgery BMI > 25 kg/m2 Swollen legs Varicose veins or History of unexplained or recurrent spontaneous Oral contraceptives or hormone replacement Sepsis (< 1 month) Serious lung disease, including pneumonia (< 1 month) Abnormal pulmonary function Acute myocardial infarction Congestive heart failure (< 1 month) History of inflammatory bowel disease Medical patient at bed rest Age 61-74 Arthroscopic surgery Major open surgery (> 45 min) Laparoscopic surgery (> 45 min) Malignancy Confined to bed (> 72 hours) Immobilizing plaster cast Central venous access Age >= 75 History of VTE Family history of VTE Factor V Leiden Prothrombin [id number] Lupus anticoagulant Anticardiolipin antibodies Elevated serum homocysteine Heparin-induced thrombocytopenia Other congenital or acquired thrombophilia Stroke (< 1 month) Elective arthroplasty Hip, pelvis, or leg fracture Acute spinal cord injury (< 1 month) Prophylaxis Regimen: Total Risk Factor Score Risk Level Prophylaxis Regimen 0-1 Low Early ambulation 2 Moderate Order ONE of the following: *Sequential Compression Device (SCD) *Heparin 5000 units SQ BID 3-4 Higher Order ONE of the following medications: *Heparin 5000 units SQ TID *Enoxaparin/Lovenox 40 mg SQ daily (WT < 150 kg, CrCl > 30 mL/min) *Enoxaparin/Lovenox 30 mg SQ daily (WT < 150 kg, CrCl > 10-29 mL/min) *Enoxaparin/Lovenox 30 mg SQ BID (WT < 150 kg, CrCl > 30 mL/min) AND/OR *Sequential Compression Device (SCD) 5 or more Highest Order ONE of the following medications: *Heparin 5000 units SQ TID (Preferred with Epidurals) *Enoxaparin/Lovenox 40 mg SQ daily (WT < 150 kg, CrCl > 30 mL/min) *Enoxaparin/Lovenox 30 mg SQ daily (WT < 150 kg, CrCl > 10-29 mL/min) *Enoxaparin/Lovenox 30 mg SQ BID (WT < 150 kg, CrCl > 30 mL/min) AND *Sequential Compression Device (SCD) Assessment and Plan - Assessment (1) Chest pain Code(s): R07.9 - Chest pain, unspecified Status: Acute (2) CAD (coronary artery disease) Code(s): I25.10 - Atherosclerotic heart disease of [place] coronary artery without angina pectoris Status: Acute (3) Hx of heart artery stent Code(s): Z95.5 - Presence of coronary angioplasty implant and graft Status: Acute (4) Hypertension Code(s): I10 - Essential (primary) hypertension Status: Acute (5) Hyperlipidemia Code(s): E78.5 - Hyperlipidemia, unspecified Status: Acute - Plan * Chest pain: Patient has had serial cardiac enzymes and EKGs were ruling out purposes. She was seen by Dr. Alex Dial of cardiology in the chest pain center. She will undergo a Lexiscan. She will be discharged home if her stress test is nonischemic with instructions to follow-up with her PCP and circular clerk. Return to ED for interval issues. * CAD with history of stent: This will be reassessed with stress testing. Resume medication. Follow-up with circular clerk. * Hypertension: Continue medication. * Hyperlipidemia: Continue medication. Patient is stable at this time. She is agreeable to this plan. H&P: Quality - VTE Deep Vein Thrombosis/Pulmonary Embolism Present on Admission: No
[2017-08-20] MEDS ORDERED: Regadenoson Inj 0.4 MG/5 ML Syringe IV.PUSH ONE (10:16)
--- NOTE | 2017-08-20 11:24 | NM ---
EXAM DATE: 08/20/2017 11:14 AM EDT AGE/SEX: 52 years / Female INDICATIONS:Angina. Myocardial infarction Left sided chest pain radiating to right side with nausea f or one day. CLINICAL DATA: This is the patient's initial encounter. Patient reports that signs and symptoms have been present for 1 day and indicates a pain score of 4/10. MEDICAL/SURGICAL HISTORY: Hypertension. None. COMPARISON: No prior exams available for comparison. DOSE: 8.5 mCi Tc 99m Myoview at rest 25.4 mCi [id number] at stress 0.4 mg Lexiscan STRESS SYMPTOMS: Dyspnea and weird feeling. EJECTION FRACTION: 69 % TECHNIQUE: The patient underwent pharmacologic stress with infusion of prescribed dose. Continuous ECG tracing was monitored during stress. Gated SPECT imaging was performed after stress and conventi onal SPECT imaging was performed at rest. The examination was performed on a SPECT/CT scanner, both attenuation and non-corrected datasets were reviewed. FINDINGS: Distribution: The maximum perfused segment at stress is in the anterolateral wall. Perfusion Study: The pattern of perfusion at stress is within normal limits. Gated Study: There are intact wall motion and wall thickening without hypokinetic or dyskinetic segm ents. The ejection fraction is calculated at 69%. RISK CATEGORY: Low (<1% Annual Motality Rate) CONCLUSION: Negative examination. Electronically signed by: Srinivasa Cabrera MD 08/20/2017 11:22 AM EDT
[2017-08-20 11:31] VITALS: BP 126/72; PULSE 83; TEMP 98.1; O2SAT 98
--- NOTE | 2017-08-20 14:43 | ECG ---
Date Performed: 08/19/2017 Time Performed: 21:57:43 PTAGE: 52 years EKG: Sinus rhythm POSSIBLE LEFT ATRIAL ENLARGEMENT MARKED LEFT AXIS DEVIATION PATTERN CONSISTENT WITH PULMONARY DISEAS E ABNORMAL ECG PREVIOUS TRACING : 08/19/2017 17.03 Since previous tracing, no significant change noted DOCTOR: Alex Dial Interpretating Date/Time 08/20/2017 14:43:06
--- NOTE | 2017-08-20 14:46 | ECG ---
Date Performed: 08/19/2017 Time Performed: 17:03:26 PTAGE: 52 years EKG: SINUS TACHYCARDIA MARKED LEFT AXIS DEVIATION ABNORMAL ECG PREVIOUS TRACING : 11/20/2012 10.32 Since previous tracing, no significant change noted DOCTOR: Alex Dial Interpretating Date/Time 08/20/2017 14:45:01
--- NOTE | 2017-08-21 16:53 | ECG ---
Date Performed: 08/19/2017 Time Performed: 23:41:24 PTAGE: 52 years EKG: Sinus rhythm MARKED LEFT AXIS DEVIATION ABNORMAL ECG PREVIOUS TRACING : 08/19/2017 21.57 Since previous tracing, no significant change noted DOCTOR: Alex Dial Interpretating Date/Time 08/21/2017 16:52:37
--- NOTE | 2017-08-23 16:53 | ED ---
HPI General Chief Complaint: Chest Pain Stated Complaint: Possible Cardiac Time Seen by Provider: 08/19/17 16:59 Source: patient and family Mode of arrival: ambulatory Limitations: no limitations Related Data Home Medications Medication Instructions Recorded Confirmed amlodipine 5 mg PO DAILY 08/19/17 08/19/17 aspirin 81 mg PO DAILY 08/19/17 08/19/17 losartan 100 mg PO DAILY 08/19/17 08/19/17 metoprolol tartrate 100 mg PO BID 08/19/17 08/19/17 simvastatin 20 mg PO QPM 08/19/17 08/19/17 Allergies Allergy/AdvReac Type Severity Reaction Status Date / Time Sulfa (Sulfonamide Allergy Severe red Verified 08/20/17 02:46 Antibiotics) blotches,itchy PMFSH Medical History Medical History History of heart attack (Acute) Hypertension (Acute) Social History Social History Substance History: No History of Abuse Second Hand Smoke Exposure: No Smoking Status: Never smoker How Often Do You Have a Drink Containing Alcohol: Never Recent Travel in [facility] within the Last 8 Weeks: No Recent Out of Country Travel within the Last 8 Weeks: No Immunization History Tetanus Immunization: Unsure Course Initial Documented Vital Signs Pulse Rate 104 H 08/19/17 17:01 Respiratory Rate 22 08/19/17 17:01 Blood Pressure 199/92 H 08/19/17 17:01 Pulse Oximetry 98 08/19/17 17:01 Last Documented Vital Signs Temperature 98.1 F 08/20/17 11:30 Pulse Rate 83 08/20/17 11:30 Respiratory Rate 16 08/20/17 11:30 Blood Pressure 126/72 08/20/17 11:30 Pulse Oximetry 98 08/20/17 11:30 Sign Out Sign Out Data: Patient Sign Out occurred on 08/19/17 at 21:34. Patient's care was discussed, and care was transferred from Dara Moya DO to Tello Goins. Sign Out Comment: Patient is pending CTA chest to rule out PE. She will need observation in chest pain unit if negative/ admission if positive. Last updated by Dara Moya DO at 08/19/17 19:14 Quality Measure Queries VTE Deep Vein Thrombosis/Pulmonary Embolism Present on Admission: No Medical Decision Making Lab Data Result diagrams: 08/19/17 17:10 08/19/17 17:10 Lab Results 08/19/17 08/19/17 08/19/17 Range/Units 17:10 17:10 17:10 WBC 11.8 H (4.0-11.0) th/mm3 RBC 4.90 (4.00-5.30) mil/mm3 Hgb 13.9 (11.6-15.3) gm/dL Hct 42.0 (35.0-46.0) % MCV 85.7 (80.0-100.0) fL MCH 28.4 (27.0-34.0) pg MCHC 33.1 (32.0-36.0) % RDW 14.6 (11.6-17.2) % Plt Count 445 (150-450) th/mm3 MPV 7.6 (7.0-11.0) fL Neut % (Auto) 72.6 H (16.0-70.0) % Lymph % (Auto) 19.0 (9.0-44.0) % [place] % (Auto) 6.6 (0.0-8.0) % Eos % (Auto) 1.3 (0.0-4.0) % Baso % (Auto) 0.5 (0.0-2.0) % Neut # (Auto) 8.5 H (1.8-7.7) th/mm3 Lymph # (Auto) 2.2 (1.0-4.8) th/mm3 [place] # (Auto) 0.8 (0.0-0.9) th/mm3 Eos # (Auto) 0.1 (0.0-0.4) th/mm3 Baso # (Auto) 0.1 (0.0-0.2) th/mm3 WBC Differential . Differential Comment Auto diff final PT 10.4 (9.8-11.6) sec INR 1.0 Ratio APTT 26.6 (24.3-30.1) sec Sodium 141 (136-145) meq/L Potassium 3.5 (3.5-5.1) meq/L Chloride 106 (98-107) meq/L Carbon Dioxide 25.5 (21.0-32.0) meq/L Anion Gap 10 (5-15) meq/L BUN 14 (7-18) mg/dL Creatinine 0.99 (0.50-1.00) mg/dL Estimated GFR 71 L (>89) mL/min Random Glucose 91 (74-106) mg/dL Calcium 8.9 (8.5-10.1) mg/dL Magnesium 2.2 (1.5-2.5) mg/dL Total Bilirubin 0.5 (0.2-1.0) mg/dL AST 24 (15-37) U/L ALT 26 (10-53) U/L Alkaline Phosphatase 91 (45-117) U/L Total Creatine Kinase 159 (26-192) U/L CK-MB (CK-2) 1.4 (0.5-3.6) ng/mL Troponin I Less than 0.02 L (0.02-0.05) ng/mL Total Protein 8.9 H (6.4-8.2) g/dL Albumin 4.2 (3.4-5.0) g/dL Lipase 164 (73-393) U/L 08/19/17 08/19/17 Range/Units 22:00 23:05 WBC (4.0-11.0) th/mm3 RBC (4.00-5.30) mil/mm3 Hgb (11.6-15.3) gm/dL Hct (35.0-46.0) % MCV (80.0-100.0) fL MCH (27.0-34.0) pg MCHC (32.0-36.0) % RDW (11.6-17.2) % Plt Count (150-450) th/mm3 MPV (7.0-11.0) fL Neut % (Auto) (16.0-70.0) % Lymph % (Auto) (9.0-44.0) % [place] % (Auto) (0.0-8.0) % Eos % (Auto) (0.0-4.0) % Baso % (Auto) (0.0-2.0) % Neut # (Auto) (1.8-7.7) th/mm3 Lymph # (Auto) (1.0-4.8) th/mm3 [place] # (Auto) (0.0-0.9) th/mm3 Eos # (Auto) (0.0-0.4) th/mm3 Baso # (Auto) (0.0-0.2) th/mm3 WBC Differential Differential Comment PT (9.8-11.6) sec INR Ratio APTT (24.3-30.1) sec Sodium (136-145) meq/L Potassium (3.5-5.1) meq/L Chloride (98-107) meq/L Carbon Dioxide (21.0-32.0) meq/L Anion Gap (5-15) meq/L BUN (7-18) mg/dL Creatinine (0.50-1.00) mg/dL Estimated GFR (>89) mL/min Random Glucose (74-106) mg/dL Calcium (8.5-10.1) mg/dL Magnesium (1.5-2.5) mg/dL Total Bilirubin (0.2-1.0) mg/dL AST (15-37) U/L ALT (10-53) U/L Alkaline Phosphatase (45-117) U/L Total Creatine Kinase 123 111 (26-192) U/L CK-MB (CK-2) (0.5-3.6) ng/mL Troponin I Less than 0.02 L Less than 0.02 L (0.02-0.05) ng/mL Total Protein (6.4-8.2) g/dL Albumin (3.4-5.0) g/dL Lipase (73-393) U/L Imaging Data Radiologist's impression: Chest X-Ray 08/19/17 17:05 CONCLUSION: No acute cardiopulmonary process. Chest CTA 08/19/17 17:07 CONCLUSION: No pulmonary embolus. Myocardial Perfusion Scan Nuc Med 08/20/17 07:39 CONCLUSION: Negative examination. Discharge Plan Discharge Disposition Patient Disposition: 30 Still Patient Discharge Condition Condition: Stable Discharge Order Discharge Orders: Discharge Order (Routine); Ordered 08/20/17 Ordered By: Alfonso Zabala Discharge Details Diagnosis: Chest pain in adult Physicians Team ED Provider: Tello Goins ED Midlevel Provider: Robby Ortega Primary Care Provider: Zoe Kurtz Attending Provider: Bharat Mccormick Status ED Status: Left Department Discharge Information Discharge Date/Time: 08/19/17 23:00
--- NOTE | 2017-11-06 13:28 | TR ---
Date Performed: 08/20/2017 Time Performed: 10:14:21 DOCTOR: Alex Dial DRUG LIST: CLINICAL HISTORY: REASON FOR TEST: REASON FOR ENDING: OBSERVATION: CONCLUSION: COMMENTS: Lexiscan stress test was performed under standard four minute protocol. Radionuclide was injected one minute prior to ending the test. No electrocardiographic abormalities were present t o suggest ischemia. Nuclear imaging and interpretation are pending.
== END 2017-08-20 18:29 | disposition home or self-care (01) ==
LOC: NEPC 16:39 → NEPFCDU 16:39 → NEDA 16:39 → NEPFCDU 22:12
PROVIDERS: ADMIT Internal Medicine Interventional Cardiology; ATTEND Internal Medicine Interventional Cardiology
DX: R07.89 Other chest pain; Z86.73 Personal history of transient ischemic attack (TIA), and cerebral infarction without residual deficits; Z79.82 Long term (current) use of aspirin; Z82.49 Family history of ischemic heart disease and other diseases of the circulatory system; R11.0 Nausea; E11.9 Type 2 diabetes mellitus without complications; Z95.5 Presence of coronary angioplasty implant and graft; I25.2 Old myocardial infarction; E78.5 Hyperlipidemia, unspecified; Z79.899 Other long term (current) drug therapy; I10 Essential (primary) hypertension; I25.10 Atherosclerotic heart disease of native coronary artery without angina pectoris